=== PATIENT | male | born 1940 | race Caucasian/White ===

== ENCOUNTER 2017-02-14 08:57 | Day surgery (SDC) | payer MEDICARE, BC ==
[~2017-02-14 08:57] MED LIST: Metoclopramide 10 MG/2 ML SDV IV PRN; Sodium Chloride 0.9% 1,000 ML IV SCH; Sodium Chloride 0.9% 10 ML Syringe FLUSH PRN
[2017-02-14] MEDS ORDERED: Propofol 200 MG/20 ML SDV ONE (10:30)
--- NOTE | 2017-02-14 17:27 | OR ---
DATE OF OPERATION: 02/14/2017 PREOPERATIVE DIAGNOSIS: Unexplained chronic iron deficiency anemia. POSTOPERATIVE DIAGNOSES: 1. Oiid-xv-wkaogeja gastritis. 2. 3-cm hiatal hernia. 3. Melanosis coli. 4. Moderate to severe sigmoid diverticulosis. 5. Grade 1 internal hemorrhoids. OPERATION: 1. Esophagogastroduodenoscopy plus biopsy. 2. Colonoscopy. COMPLICATIONS: None. DRAINS: None. SPECIMENS: GE junction biopsy. ESTIMATED BLOOD LOSS: Minimal. ANESTHESIA: General propofol anesthesia. INDICATION: Mr. Norris is a 76-year-old gentleman with background history of a hematological neoplasia and has been noted to have a chronic iron deficiency anemia. He was subsequently referred for upper and lower endoscopy for evaluation. The above-mentioned procedure was explained and the risks, benefits, complications were explained. The patient understood and agreed and he was brought to the operating room. DESCRIPTION OF PROCEDURE: The patient was brought to the operating room, placed in the left lateral decubitus position on the operating room table. Satisfactory general propofol anesthesia was administered. A mouth guard was placed and the patient was placed in a 45- degree angle on table. We began by performing the upper endoscopy first. The endoscope was placed in the oral cavity and then advanced to the level of the second portion of the duodenum under direct observation. Careful evaluation of the duodenum revealed a medium- sized notable ampulla, but no abnormalities identified at that site. Remainder of the duodenum was within normal limits. Evaluation of the stomach revealed some areas of mild to moderate gastritis with some granular appearance in the antrum and pylorus, however, no ulcers were identified. The remainder of the body of the stomach showed some cobblestoning suggestive of old gastritis or suggestive of mild gastritis as well. Retroflexion was performed within the stomach, which revealed a moderate-sized hiatal hernia, which was measured approximately 3 cm. This appeared to be a sliding-type, however, would recommend upper GI for further followup. There was some elements of gastritis surrounding the hiatal hernia site and this was also quite mild. No evidence of active bleeding within the stomach. Evaluation of the GE junction reveals a single tongue of tissue from the GE junction, which was approximately at about 39 cm and this tongue was then biopsied multiple times and sent for histology. The remainder of the esophagus was within normal limits. It did appear slightly dilated, however, no other abnormalities were detected. The endoscope was subsequently withdrawn. The patient tolerated the procedure well. We kept the patient in the left lateral decubitus position and rotated the table and I flattened it out. We performed a lower endoscopy. In prior to doing so, there was a 1.5-2 cm perianal skin tag identified. This was quite soft with no evidence of skin changes. I placed the endoscope by finger introduction into the rectum and there were some external skin tags around the anal verge. These were quite small and likely reminiscent of all the external hemorrhoids. We advanced the endoscope by direct vision to the level of the cecum. This was identified by the appendiceal orifice, the cecal strap, and ileocecal valve. Careful evaluation of the mucosa was performed on withdrawal, this revealed melanosis coli throughout the entire colon and this was approximately moderate in nature. There was severe sigmoid diverticulosis, however, no evidence of bleeding identified. The prep was fair and after lavage the views were good. The patient did have grade 1 internal hemorrhoids. The remainder of the colon was within normal limits. There were no polyps, no neoplastic growths, and no telangiectasias that could be identifying. Retroflexion was performed in the rectum. The colon was then decompressed and the endoscope was withdrawn. The patient tolerated the procedure well. There were no complications. Instrument count was correct. The patient was awoken in the OR, and taken to PACU for recovery. JUN /[id number]
== END 2017-02-14 12:35 | disposition home or self-care (01) ==
LOC: LB.SDS 08:57
PROVIDERS: ATTEND Surgery
DX: K22.70 Barrett's esophagus without dysplasia (principal); K29.50 Unspecified chronic gastritis without bleeding; K57.30 Diverticulosis of large intestine without perforation or abscess without bleeding; K64.8 Other hemorrhoids; K44.9 Diaphragmatic hernia without obstruction or gangrene; I10 Essential (primary) hypertension; Z88.8 Allergy status to other drugs, medicaments and biological substances; Z79.82 Long term (current) use of aspirin; Z79.899 Other long term (current) drug therapy
CPT/HCPCS: 43239; 45378; 88305; J2704; J7040

== ENCOUNTER 2017-02-19 14:37 | Emergency (ER) | payer MEDICARE, BC ==
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
--- NOTE | 2017-02-20 12:01 | CT ---
DATE OF SERVICE: 02/19/17 CLINICAL DATA: Head injury UNENHANCED BRAIN CT Multislice acquisition through the brain without IV contrast was performed. No priors. There is diffuse cerebral atrophy. There is a lucency in the right basal ganglia consistent with an old lacunar infarct. No masses or mass effect. No intracranial hemorrhage. No evidence of acute or subacute infarct. There is soft tissue swelling of the scalp on the right. There is also a subcutaneous hematoma. No underlying fracture. IMPRESSION: No acute intracranial abnormalities. [id number] [facility]
== END 2017-02-19 16:00 | disposition home or self-care (01) ==
LOC: LB.ED 14:37
DX: S00.03XA Contusion of scalp, initial encounter (principal); W22.8XXA Striking against or struck by other objects, initial encounter
CPT/HCPCS: 70450; 99283; 99283-25

== ENCOUNTER 2018-05-11 23:10 | Emergency (ER) | payer MEDICARE, BC ==
--- NOTE | 2018-05-11 23:36 | EDM.PDOC ---
ED HPI GENERAL MEDICAL PROBLEM - General Chief Complaint: Cardiovascular Problem Stated Complaint: HEART BURN Time Seen by Provider: 05/11/18 23:10 Source of Information: Reports: Patient History Limitations: Reports: No Limitations - History of Present Illness INITIAL COMMENTS - FREE TEXT/NARRATIVE: According to patient he has been having heart schuler since yesterday 4 pm. Claims that he feels gassy and feels burning sensation in the midchest. No chest pain, shortness or breath, no worsening of heart burn when he exerts. No backpack. No nausea or vomiting. He has had constant burning in the chest. Spouse gave him pepto-bismol today, heart burn did not resolve. So spouse gave patient her nitro tablet time 2 nd there was some improvement in his heart burn. No sweating, weakness or chest discomfort. No back pain. Onset Date: 05/10/18 Onset Time: 16:00 Location: Reports: Chest Quality: Reports: Burning Severity: Moderate Improves with: Reports: None Worsens with: Reports: None Associated Symptoms: Denies: Confusion, Chest Pain, Cough, Diaphoresis, Fever/ Chills, Headaches, Nausea/Vomiting, Rash, Seizure, Shortness of Breath, Syncope , Weakness - Related Data Allergies Allergy/AdvReac Type Severity Reaction Status Date / Time No Known Allergies Allergy Verified 05/11/18 23:30 Home Meds: Home Meds ALPRAZolam [Alprazolam] 0.25 mg PO TID 02/14/17 [History] Allopurinol [Zyloprim] 300 mg PO DAILY 02/14/17 [History] Aspirin [Adult Low Dose Aspirin EC] 81 mg PO DAILY 02/14/17 [History] Finasteride 5 mg PO DAILY 02/14/17 [History] Ibrutinib [Imbruvica] 140 mg PO DAILY 02/14/17 [History] Losartan/Hydrochlorothiazide [Losartan-HCTZ 100-25 MG] 1 each PO DAILY 02/14/17 [History] Meclizine HCl 25 mg PO DAILY PRN 02/14/17 [History] Metoprolol Succinate [Toprol XL] 50 mg PO DAILY 02/14/17 [History] Omeprazole 20 mg PO DAILY 02/14/17 [History] Ondansetron HCl [Ondansetron] 4 mg PO Q4HR PRN 02/14/17 [History] Sennosides/Docusate Sodium [Senna-Docusate Sodium] 1 each PO DAILY PRN 02/14/17 [History] Simvastatin [Zocor] 40 mg PO BEDTIME 02/14/17 [History] Tamsulosin HCl 0.4 mg PO DAILY 02/14/17 [History] amLODIPine [Norvasc] 10 mg PO DAILY 02/14/17 [History] buPROPion [Wellbutrin] 100 mg PO TID 02/14/17 [History] cloNIDine HCl [Clonidine HCl ER] 0.1 mg PO BID 02/14/17 [History] Past Medical History HEENT History: Reports: Hard of Hearing Cardiovascular History: Reports: [place] Genitourinary History: Reports: Prostate Disorder Neurological History: Reports: None Psychiatric History: Reports: Depression Hematologic History: Reports: Anemia Other Hematologic History: That is why colonoscopy is being done Oncologic (Cancer) History: Reports: Leukemia - Infectious Disease History Infectious Disease History: Reports: Measles, Mumps, Rubella - Past Surgical History Cardiovascular Surgical History: Reports: Coronary Artery Stent Social & Family History - Family History Family Medical History: Noncontributory - Caffeine Use Caffeine Use: Reports: Coffee ED ROS GENERAL - Review of Systems Review Of Systems: See Below Constitutional: Denies: Fever, Chills, Malaise, Weakness HEENT: Denies: Rhinitis, Throat Pain Respiratory: Denies: Shortness of Breath, Wheezing, Pleuritic Chest Pain, Cough , Sputum Cardiovascular: Denies: Chest Pain, Edema, Lightheadedness, Syncope GI/Abdominal: Denies: Abdominal Pain, Constipation, Diarrhea, Distension, Nausea , Vomiting : Denies: Flank Pain, Frequency Musculoskeletal: Denies: Joint Pain, Joint Swelling Skin: Denies: Pruritis, Rash, Erythema Neurological: Denies: Confusion, Dizziness, Headache, Numbness, Tingling Psychiatric: Reports: Anxiety. Denies: Agitation, Confusion ED EXAM, GENERAL - Physical Exam Exam: See Below Exam Limited By: No Limitations General Appearance: Alert, WD/WN, Anxious Eye Exam: Bilateral Eye: EOMI, PERRL Ears: Normal External Exam, Normal Canal, Hearing Grossly Normal, Normal TMs Ear Exam: Bilateral Ear: Auricle Normal, Canal Normal, TM normal Nose: Normal Inspection, Normal Mucosa, No Blood Throat/Mouth: Normal Inspection, Normal Lips, Normal Teeth, Normal Gums, Normal Oropharynx, Normal Voice, No Airway Compromise Head: Atraumatic, Normocephalic Neck: Normal Inspection, Supple, Non-Tender, Full Range of Motion Respiratory/Chest: No Respiratory Distress, Lungs Clear, Normal Breath Sounds, No Accessory Muscle Use, Chest Non-Tender Cardiovascular: Normal Peripheral Pulses, Regular Rate, Rhythm, No Edema, No Gallop, No JVD, No Murmur, No Rub Peripheral Pulses: 2+: Brachial (L), Brachial (R), Popliteal (L), Popliteal (R) GI/Abdominal: Normal Bowel Sounds, Soft, Non-Tender, No Organomegaly, No Distention, No Abnormal Bruit, No Mass Extremities: Normal Inspection, Normal Range of Motion, Non-Tender, Normal Capillary Refill, No Pedal Edema Neurological: Alert, Oriented, CN II-XII Intact Psychiatric: Anxious Skin Exam: Warm, Intact EKG INTERPRETATION EKG Date: 05/11/18 Rhythm: NSR Rate (Beats/Min): 68 [place]: Normal P-Wave: Present QRS: Normal ST-T: Normal QT: Normal Course - Vital Signs Text/Narrative:: Pt's EKG is in normal sinus rhythm. His CBC is normal. CMP is table. troponin is negative. Pt has had chronic GERD, he has had heart burn going on since yesterday 4 pm. If this was related to cardiac injury, his troponin should be positive as his heart burn has been going on for 36 hrs now. Patient and spouse reassured that he might have aggravation of his GERD , possibly from food. I have advised patient to increase his prilosec from 20mg to 40mg daily. Advised to take prilosec on empty stomach in the morning. If his heart burn does not improve, he should have upper GI scope done to rule out peptic ulcer. Last Recorded V/S: Last Vital Signs Temp 97.8 F 05/11/18 23:30 Pulse 67 05/11/18 23:44 Resp 20 05/11/18 23:30 BP 163/75 H 05/11/18 23:44 Pulse Ox 97 05/11/18 23:44 - Orders/Labs/Meds Orders: Active Orders 24 hr Category Date Time Status EKG Documentation Completion [RC] ASDIRECTED Care 05/11/18 23:07 Active Labs: Laboratory Tests 05/11/18 05/11/18 Range/Units 23:15 23:15 WBC 10.4 (4.0-11.0) K/uL RBC 4.85 (4.50-6.50) M/uL Hgb 13.8 (13.0-18.0) g/dL Hct 40.3 (40.0-54.0) % MCV 83 (76-96) fL MCH 28.5 (27.0-32.0) pg MCHC 34.2 (31.0-35.0) g/dL RDW 14.1 (11.0-16.0) % Plt Count 140 L (150-400) K/uL MPV 11.7 H (6.0-10.0) fL Neut % (Auto) 46.9 (45.0-70.0) % Lymph % (Auto) 43.7 H (20.0-40.0) % [place] % (Auto) 7.8 (3.0-10.0) % Eos % (Auto) 1.4 (1.0-5.0) % Baso % (Auto) 0.2 (0.0-0.5) % Neut # (Auto) 4.86 (2.00-7.50) K/uL Lymph # (Auto) 4.53 H (1.50-4.00) K/uL [place] # (Auto) 0.81 H (0.20-0.80) K/uL Eos # (Auto) 0.14 (0.04-0.40) K/uL Baso # (Auto) 0.02 (0.02-0.10) K/uL Sodium 142 (136-145) mmol/L Potassium 3.4 L (3.5-5.1) mmol/L Chloride 103 (98-107) mmol/L Carbon Dioxide 28.8 (21.0-32.0) mmol/L Anion Gap 13.6 (5.0-15.0) mmol/L BUN 18 (8-26) mg/dL Creatinine 1.09 (0.70-1.30) mg/dL Est Cr Clr Drug Dosing 51.38 mL/min Estimated GFR (MDRD) > 60 (>60) MLS/MIN BUN/Creatinine Ratio 16.5 (6-25) Glucose 89 (74-100) mg/dL Calcium 8.0 L (8.5-10.1) mg/dL Total Bilirubin 0.4 D (0.0-1.0) mg/dL AST 15 (15-37) U/L ALT 18 (12-78) U/L Alkaline Phosphatase 53 (46-116) U/L Troponin I < 0.017 (0.000-0.060) ng/mL Total Protein 6.4 (6.4-8.2) g/dL Albumin 3.4 (3.4-5.0) g/dL Globulin 3.0 (2.2-4.2) g/dL Albumin/Globulin Ratio 1.1 (0.8-2.0) Departure - Departure Time of Disposition: 00:00 Disposition: Home, Self-Care 01 Condition: Fair Clinical Impression: Chronic GERD Instructions: Indigestion, [id number] Forms: ED Department Discharge Additional Instructions: Take the omeprazole 40mg (2 tabs of the 20mg) and DO NOT eat with your omeprazole. It is very important to take the omeprazole on an empty stomach. If you continue to have the heartburn, return to the clinic and get a further workup. - Problem List & Annotations (1) Chronic GERD SNOMED Code(s): 585929757, 776883461 Code(s): K21.9 - GASTRO-ESOPHAGEAL REFLUX DISEASE WITHOUT ESOPHAGITIS Status: Acute - Problem List Review Problem List Initiated/Reviewed/Updated: Yes - My Orders Last 24 Hours: My Active Orders 05/11/18 23:07 EKG Documentation Completion [RC] ASDIRECTED - Assessment/Plan Last 24 Hours: My Active Orders 05/11/18 23:07 EKG Documentation Completion [RC] ASDIRECTED Assessment:: Chronic GERD with mild flare up Plan: Pt's EKG is in normal sinus rhythm. His CBC is normal. CMP is table. troponin is negative. Pt has had chronic GERD, he has had heart burn going on since yesterday 4 pm. If this was related to cardiac injury, his troponin should be positive as his heart burn has been going on for 36 hrs now. Patient and spouse reassured that he might have aggravation of his GERD , possibly from food. I have advised patient to increase his prilosec from 20mg to 40mg daily. Advised to take prilosec on empty stomach in the morning. If his heart burn does not improve, he should have upper GI scope done to rule out peptic ulcer.
== END 2018-05-12 00:04 | disposition home or self-care (01) ==
LOC: LB.ED 23:10
DX: K21.9 Gastro-esophageal reflux disease without esophagitis (principal); I25.2 Old myocardial infarction; F32.9 Major depressive disorder, single episode, unspecified; Z79.82 Long term (current) use of aspirin; Z79.899 Other long term (current) drug therapy
CPT/HCPCS: 36415; 80053; 84484; 85025; 93005; 99283; 99284-25

== ENCOUNTER 2018-09-25 15:34 | Observation (INO) | payer MEDICARE, BC ==
[2018-09-25] MEDS ORDERED: ONDANSETRON HCL 4 MG PO PRN (17:07)
[2018-09-25] MEDS ORDERED: Loperamide 2 MG Cap PO PRN (17:10)
--- NOTE | 2018-09-25 17:15 | PCM.HP ---
H&P History of Present Illness - General Date of Service: 09/25/18 Admit Problem/Dx: Admission Diagnosis/Problem Admission Diagnosis/Problem Hyponatremia Source of Information: Patient, Family, Old Records History Limitations: Reports: Altered Mental Status - History of Present Illness Initial Comments - Free Text/Narative: This is a 78yo M with frequent diarrhea for the past week. He has not improved and continues to have loose stools. Family note confusion and incoherence the past day. It has worsened throughout the day. He denies any chest pain, no trouble breathing, but he has some dizziness, some confusion, some gait imbalance which are all new symptoms. He recently was on antibiotics for a toe infection. His infection has resolved but the diarrhea started prior to finishing his course of antibiotics. He has since stopped his antibiotics but the diarrhea continues. He has not been eating well the past few days and now is not drinking as much. Onset of Symptoms: Reports: Gradual Duration of Symptoms: Reports: Day(s):, Getting Worse Location: Reports: Generalized Severity: Moderate Associated Symptoms: Reports: Confusion, Loss of Appetite, Weakness - Related Data Allergies/Adverse Reactions: Allergies Allergy/AdvReac Type Severity Reaction Status Date / Time No Known Allergies Allergy Verified 05/11/18 23:30 Home Medications: Home Meds ALPRAZolam [Alprazolam] 0.25 mg PO TID 02/14/17 [History] Allopurinol [Zyloprim] 300 mg PO DAILY 02/14/17 [History] Aspirin [Adult Low Dose Aspirin EC] 81 mg PO DAILY 02/14/17 [History] Finasteride 5 mg PO DAILY 02/14/17 [History] Ibrutinib [Imbruvica] 140 mg PO DAILY 02/14/17 [History] Losartan/Hydrochlorothiazide [Losartan-HCTZ 100-25 MG] 1 each PO DAILY 02/14/17 [History] Meclizine HCl 25 mg PO DAILY PRN 02/14/17 [History] Metoprolol Succinate [Toprol XL] 50 mg PO DAILY 02/14/17 [History] Omeprazole 20 mg PO DAILY 02/14/17 [History] Ondansetron HCl [Ondansetron] 4 mg PO Q4HR PRN 02/14/17 [History] Sennosides/Docusate Sodium [Senna-Docusate Sodium] 1 each PO DAILY PRN 02/14/17 [History] Simvastatin [Zocor] 40 mg PO BEDTIME 02/14/17 [History] Tamsulosin HCl 0.4 mg PO DAILY 02/14/17 [History] amLODIPine [Norvasc] 10 mg PO DAILY 02/14/17 [History] buPROPion [Wellbutrin] 100 mg PO TID 02/14/17 [History] cloNIDine HCl [Clonidine HCl ER] 0.1 mg PO BID 02/14/17 [History] Past Medical History HEENT History: Reports: Hard of Hearing Cardiovascular History: Reports: [place] Genitourinary History: Reports: Prostate Disorder Neurological History: Reports: None Psychiatric History: Reports: Depression Hematologic History: Reports: Anemia Other Hematologic History: That is why colonoscopy is being done Oncologic (Cancer) History: Reports: Leukemia - Infectious Disease History Infectious Disease History: Reports: Measles, Mumps, Rubella - Past Surgical History Cardiovascular Surgical History: Reports: Coronary Artery Stent Social & Family History - Family History Family Medical History: Noncontributory - Caffeine Use Caffeine Use: Reports: Coffee H&P Review of Systems - Review of Systems: Review Of Systems: ROS reveals no pertinent complaints other than HPI. Exam - Exam Exam: See Below - Exam General: Alert, Cooperative. No: Oriented HEENT: PERRLA, Conjunctiva Clear, EACs Clear, EOMI, Other (decreased hearing is baseline) Neck: Supple, Trachea Midline Lungs: Clear to Auscultation, Normal Respiratory Effort Cardiovascular: Regular Rate, Regular Rhythm GI/Abdominal Exam: Soft, Abnormal Bowel Sounds (hyperactive) Back Exam: Normal Inspection Extremities: Normal Inspection Peripheral Pulses: 2+: Dorsalis Pedis (L), Dorsalis Pedis (R) Skin: Warm, Dry, Intact - Patient Data Lab Results Last 24 hrs: Laboratory Results - last 24 hr 09/25/18 09/25/18 Range/Units 15:45 15:45 WBC 6.9 D (4.0-11.0) K/uL RBC 4.15 L (4.50-6.50) M/uL Hgb 11.8 L (13.0-18.0) g/dL Hct 33.7 L (40.0-54.0) % MCV 81 (76-96) fL MCH 28.4 (27.0-32.0) pg MCHC 35.0 (31.0-35.0) g/dL RDW 13.2 (11.0-16.0) % Plt Count 138 L (150-400) K/uL MPV 12.2 H (6.0-10.0) fL Neut % (Auto) 47.5 (45.0-70.0) % Lymph % (Auto) 33.3 (20.0-40.0) % [place] % (Auto) 17.0 H (3.0-10.0) % Eos % (Auto) 1.9 (1.0-5.0) % Baso % (Auto) 0.3 (0.0-0.5) % Neut # (Auto) 3.28 (2.00-7.50) K/uL Lymph # (Auto) 2.30 (1.50-4.00) K/uL [place] # (Auto) 1.17 H (0.20-0.80) K/uL Eos # (Auto) 0.13 (0.04-0.40) K/uL Baso # (Auto) 0.02 (0.02-0.10) K/uL Sodium 132 L (136-145) mmol/L Potassium 3.2 L (3.5-5.1) mmol/L Chloride 96 L (98-107) mmol/L Carbon Dioxide 30.2 (21.0-32.0) mmol/L Anion Gap 9.0 (5.0-15.0) mmol/L BUN 26 D (8-26) mg/dL Creatinine 1.29 (0.70-1.30) mg/dL Est Cr Clr Drug Dosing TNP Estimated GFR (MDRD) 54 L (>60) MLS/MIN BUN/Creatinine Ratio 20.2 (6-25) Glucose 104 H (74-100) mg/dL Calcium 7.8 L (8.5-10.1) mg/dL Result Diagrams: 09/25/18 15:45 09/25/18 15:45 - Problem List (1) Hyponatremia SNOMED Code(s): 28881983 ICD Code: E87.1 - HYPO-OSMOLALITY AND HYPONATREMIA Status: Acute Priority : High Current Visit: Yes (2) Delirium SNOMED Code(s): 1918209 ICD Code: R41.0 - DISORIENTATION, UNSPECIFIED Status: Acute Priority: High Current Visit: Yes (3) Hypokalemia SNOMED Code(s): 64376846 ICD Code: E87.6 - HYPOKALEMIA Status: Acute Priority: High Current Visit: Yes (4) Diarrhea SNOMED Code(s): 51336460 ICD Code: R19.7 - DIARRHEA, UNSPECIFIED Status: Acute Priority: High Current Visit: Yes Qualifiers: Diarrhea type: unspecified type Qualified Code(s): R19.7 - Diarrhea, unspecified Problem List Initiated/Reviewed/Updated: Yes Orders Last 24hrs: Active Orders 24 hr Category Date Time Status Patient Status [ADT] Routine ADT 09/25/18 17:05 Ordered Oxygen Therapy [RC] PRN Care 09/25/18 17:06 Ordered Vital Signs [RC] Q4H Care 09/25/18 17:05 Ordered ALPRAZolam [Xanax] Med 09/25/18 20:00 Ordered 0.25 mg PO TID Allopurinol [Zyloprim] Med 09/26/18 08:00 Ordered 300 mg PO DAILY Aspirin [Halfprin] Med 09/26/18 08:00 Ordered 81 mg PO DAILY Dextrose 5%-Normal Saline with KCl 20 mEq @ 125 mL/Hr ( Med 09/25/18 17:15 Ordered 1000 mL) Dextrose 5%-0.9% NaCl with KCl [D5 NS with 20 mEq KCl] 1,000 ml IV ASDIRECTED Docusate Sodium/Sennosides [Senna Plus] Med 09/25/18 17:07 Stop Req DOSE tab PO DAILY PRN Finasteride [Proscar] Med 09/26/18 08:00 Ordered 5 mg PO DAILY Ibrutinib [Imbruvica] Med 09/26/18 08:00 Ordered 140 mg PO DAILY Loperamide [Imodium] Med 09/25/18 17:10 Ordered 2 mg PO ASDIRECTED PRN Losartan/Hydrochlorothiazide [Losartan-HCTZ 100-25 MG] Med 09/26/18 08:00 Ordered 1 each PO DAILY Meclizine HCl [Meclizine HCl] Med 09/25/18 17:07 Ordered 25 mg PO DAILY PRN Metoprolol Succinate [Toprol XL] Med 09/26/18 08:00 Ordered 50 mg PO DAILY Omeprazole Med 09/26/18 08:00 Ordered 20 mg PO DAILY Ondansetron HCl [Ondansetron] Med 09/25/18 17:07 Ordered 4 mg PO Q4HR PRN Simvastatin [Zocor] Med 09/25/18 20:00 Ordered 40 mg PO BEDTIME Tamsulosin [Flomax] Med 09/26/18 08:00 Ordered 0.4 mg PO DAILY amLODIPine [Norvasc] Med 09/26/18 08:00 Ordered 10 mg PO DAILY buPROPion [Wellbutrin] Med 09/25/18 20:00 Ordered 100 mg PO TID cloNIDine HCl [Clonidine HCl ER] Med 09/25/18 20:00 Ordered 0.1 mg PO BID Medication Orders Allopurinol (Zyloprim) 300 mg PO DAILY [facility] Alprazolam (Xanax) 0.25 mg PO TID [facility] Amlodipine Besylate (Norvasc) 10 mg PO DAILY [facility] Aspirin (Halfprin) 81 mg PO DAILY [facility] Finasteride (Proscar) 5 mg PO DAILY [facility] Potassium Chloride/Dextrose/Sod Cl (D5 Ns With 20 Meq Kcl) 1,000 mls @ 125 mls/ hr IV ASDIRECTED [facility] Stop: 09/27/18 01:14 Loperamide HCl (Imodium) 2 mg PO ASDIRECTED PRN PRN Reason: Diarrhea Metoprolol Succinate (Toprol Xl) 50 mg PO DAILY [facility] Non-Formulary Medication (Bupropion [Wellbutrin]) 100 mg PO TID [facility] Non-Formulary Medication (Clonidine Hcl [Clonidine Hcl Er]) 0.1 mg PO BID [facility] Non-Formulary Medication (Ibrutinib [Imbruvica]) 140 mg PO DAILY [facility] Non-Formulary Medication (Losartan/Hydrochlorothiazide [Losartan-Hctz 100-25 Mg] ) 1 each PO DAILY [facility] Non-Formulary Medication (Meclizine Hcl [Meclizine Hcl]) 25 mg PO DAILY PRN PRN Reason: Nausea Non-Formulary Medication (Ondansetron Hcl [Ondansetron]) 4 mg PO Q4HR PRN PRN Reason: Nausea Omeprazole (Omeprazole) 20 mg PO DAILY [facility] Simvastatin (Zocor) 40 mg PO BEDTIME [facility] Tamsulosin HCl (Flomax) 0.4 mg PO DAILY [facility] Assessment/Plan Comment:: Patient placed in observation for management of electrolytes and f/u labs in AM. Discussed delirium and continued monitoring until resolution. We will start loperamide and probiotics for diarrhea. F/u in am.
[2018-09-25] MEDS ORDERED: Lactobacillus Acidophilus/Lactobacillus Sporogenes (Probiotic) Tab PO SCH (17:24)
[2018-09-25] MEDS ORDERED: Dextrose 5%-0.9% NaCl with KCl 1,000 ML ONE (17:33)
[2018-09-25] MEDS: Dextrose 5%-0.9% NaCl with KCl 1,000 ML IV SCH (17:36)
[2018-09-25] MEDS ORDERED: CLONIDINE HCL 0.1 MG PO SCH (20:00)
[2018-09-25] MEDS ORDERED: Metoprolol Succinate 50 MG Tab.ER PO SCH (20:00)
[2018-09-25] MEDS ORDERED: Simvastatin 40 MG Tab PO SCH (20:00)
[2018-09-25] MEDS ORDERED: Tamsulosin 0.4 MG Cap.ER PO SCH (20:00)
[2018-09-25] MEDS ORDERED: Non-Formulary Medication 1 Each (Bupropion [Wellbutrin] 100 MG) PO SCH (20:00)
[2018-09-25] MEDS ORDERED: ALPRAZolam 0.25 MG Tab PO SCH (20:00)
[2018-09-26] MEDS: Dextrose 5%-0.9% NaCl with KCl 1,000 ML IV SCH (04:09)
[2018-09-26] MEDS ORDERED: Omeprazole 20 MG Cap.CR PO SCH (07:00)
[2018-09-26] MEDS ORDERED: amLODIPine 10 MG Tab PO SCH (08:00)
[2018-09-26] MEDS ORDERED: Aspirin 81 MG Tab.EC PO SCH (08:00)
[2018-09-26] MEDS ORDERED: Finasteride 5 MG Tab PO SCH (08:00)
[2018-09-26] MEDS ORDERED: Allopurinol 300 MG Tab PO SCH (08:00)
[2018-09-26] MEDS ORDERED: Hydrochlorothiazide 25 MG Tab PO SCH (08:00)
[2018-09-26] MEDS ORDERED: IBRUTINIB 140 MG PO SCH (08:00)
[2018-09-26] MEDS ORDERED: Losartan 50 MG Tab PO SCH (08:00)
--- NOTE | 2018-09-26 09:59 | PCM.DCSUM1 ---
Discharge Summary - Discharge Data Discharge Date: 09/26/18 Discharge Disposition: Home, Self-Care 01 Condition: Good - Discharge Diagnosis/Problem(s) (1) Hyponatremia SNOMED Code(s): 07230116 ICD Code: E87.1 - HYPO-OSMOLALITY AND HYPONATREMIA Status: Resolved Priority: High Current Visit: Yes (2) Delirium SNOMED Code(s): 6618591 ICD Code: R41.0 - DISORIENTATION, UNSPECIFIED Status: Resolved Priority: High Current Visit: Yes (3) Hypokalemia SNOMED Code(s): 30170971 ICD Code: E87.6 - HYPOKALEMIA Status: Acute Priority: Medium Current Visit: Yes (4) Diarrhea SNOMED Code(s): 50170845 ICD Code: R19.7 - DIARRHEA, UNSPECIFIED Status: Acute Priority: Medium Current Visit: Yes Qualifiers: Diarrhea type: unspecified type Qualified Code(s): R19.7 - Diarrhea, unspecified - Patient Instructions Activity: As Tolerated Showering/Bathing: May Shower - Discharge Plan Prescriptions/Med Rec: Acidophilus/Lactobac Spor [Acidolphilus X-Strength] 1 tab PO BID #60 tablet Loperamide [Imodium] 2 mg PO ASDIRECTED PRN #20 cap PRN Reason: Diarrhea Potassium Chloride [Klor-Con 10] 10 meq PO BID #20 tablet.er Home Medications: Home Meds ALPRAZolam [Alprazolam] 0.5 mg PO TID 02/14/17 [History] Aspirin [Adult Low Dose Aspirin EC] 81 mg PO DAILY 02/14/17 [History] Finasteride 5 mg PO DAILY 02/14/17 [History] Ibrutinib [Imbruvica] 420 mg PO DAILY 02/14/17 [History] Losartan/Hydrochlorothiazide [Losartan-HCTZ 100-25 MG] 1 each PO DAILY 02/14/17 [History] Meclizine HCl 25 mg PO DAILY PRN 02/14/17 [History] Metoprolol Succinate [Toprol XL] 50 mg PO BEDTIME 02/14/17 [History] Omeprazole 40 mg PO DAILY 02/14/17 [History] Simvastatin [Zocor] 20 mg PO BEDTIME 02/14/17 [History] Tamsulosin HCl 0.4 mg PO BEDTIME 02/14/17 [History] amLODIPine [Norvasc] 10 mg PO DAILY 02/14/17 [History] buPROPion [Wellbutrin] 300 mg PO TID 02/14/17 [History] cloNIDine HCl [Clonidine HCl ER] 0.1 mg TOP WEEKLY 02/14/17 [History] Furosemide [Lasix] 20 mg PO DAILY 09/25/18 [History] Acidophilus/Lactobac Spor [Acidolphilus X-Strength] 1 tab PO BID #60 tablet 05/16 [Rx] Loperamide [Imodium] 2 mg PO ASDIRECTED PRN #20 cap 09/26/18 [Rx] Potassium Chloride [Klor-Con 10] 10 meq PO BID #20 tablet.er 09/26/18 [Rx] Patient Handouts: Diarrhea, Adult, Hyponatremia - Discharge Summary/Plan Comment DC Time >30 min.: No Discharge Summary/Plan Comment: Patient to be discharged. His symptoms have resolved. We will continue probiotics for 1 month. Continue loperamide as needed until diarrhea resolves. Hold home senna. Start KCl for 10 days and f/u with PCP as needed and for BMP. - General Info Date of Service: 09/26/18 Functional Status: Reports: Tolerating Diet, Ambulating - Review of Systems General: Reports: No Symptoms HEENT: Reports: No Symptoms Pulmonary: Reports: No Symptoms Cardiovascular: Reports: No Symptoms Gastrointestinal: Reports: No Symptoms Genitourinary: Reports: No Symptoms Musculoskeletal: Reports: No Symptoms Skin: Reports: No Symptoms Neurological: Reports: No Symptoms Psychiatric: Reports: No Symptoms - Patient Data Vitals - Most Recent: Last Vital Signs Temp 36.6 C 09/26/18 09:00 Pulse 75 09/26/18 09:00 Resp 18 09/26/18 09:00 BP 153/60 H 09/26/18 09:00 Pulse Ox 96 09/26/18 09:00 Weight - Most Recent: 89.539 kg I&O - Last 24 hours: Intake & Output 09/25/18 09/26/18 09/26/18 22:59 06:59 14:59 Intake Total 75 200 855 Output Total 1300 400 Balance 75 -1100 455 Lab Results - Last 24 hrs: Laboratory Results - last 24 hr 09/25/18 09/25/18 09/26/18 Range/Units 15:45 15:45 07:00 WBC 6.9 D 5.0 D (4.0-11.0) K/uL RBC 4.15 L 4.02 L (4.50-6.50) M/uL Hgb 11.8 L 11.3 L (13.0-18.0) g/dL Hct 33.7 L 32.8 L (40.0-54.0) % MCV 81 82 (76-96) fL MCH 28.4 28.1 (27.0-32.0) pg MCHC 35.0 34.5 (31.0-35.0) g/dL RDW 13.2 13.4 (11.0-16.0) % Plt Count 138 L 119 L (150-400) K/uL MPV 12.2 H 12.1 H (6.0-10.0) fL Neut % (Auto) 47.5 46.3 (45.0-70.0) % Lymph % (Auto) 33.3 31.9 (20.0-40.0) % [place] % (Auto) 17.0 H 19.8 H (3.0-10.0) % Eos % (Auto) 1.9 1.8 (1.0-5.0) % Baso % (Auto) 0.3 0.2 (0.0-0.5) % Neut # (Auto) 3.28 2.30 (2.00-7.50) K/uL Lymph # (Auto) 2.30 1.58 (1.50-4.00) K/uL [place] # (Auto) 1.17 H 0.98 H (0.20-0.80) K/uL Eos # (Auto) 0.13 0.09 (0.04-0.40) K/uL Baso # (Auto) 0.02 0.01 L (0.02-0.10) K/uL Sodium 132 L (136-145) mmol/L Potassium 3.2 L (3.5-5.1) mmol/L Chloride 96 L (98-107) mmol/L Carbon Dioxide 30.2 (21.0-32.0) mmol/L Anion Gap 9.0 (5.0-15.0) mmol/L BUN 26 D (8-26) mg/dL Creatinine 1.29 (0.70-1.30) mg/dL Est Cr Clr Drug Dosing TNP Estimated GFR (MDRD) 54 L (>60) MLS/MIN BUN/Creatinine Ratio 20.2 (6-25) Glucose 104 H (74-100) mg/dL Calcium 7.8 L (8.5-10.1) mg/dL Total Bilirubin (0.0-1.0) mg/dL AST (15-37) U/L ALT (12-78) U/L Alkaline Phosphatase (46-116) U/L Total Protein (6.4-8.2) g/dL Albumin (3.4-5.0) g/dL Globulin (2.2-4.2) g/dL Albumin/Globulin Ratio (0.8-2.0) 09/26/18 Range/Units 07:00 WBC (4.0-11.0) K/uL RBC (4.50-6.50) M/uL Hgb (13.0-18.0) g/dL Hct (40.0-54.0) % MCV (76-96) fL MCH (27.0-32.0) pg MCHC (31.0-35.0) g/dL RDW (11.0-16.0) % Plt Count (150-400) K/uL MPV (6.0-10.0) fL Neut % (Auto) (45.0-70.0) % Lymph % (Auto) (20.0-40.0) % [place] % (Auto) (3.0-10.0) % Eos % (Auto) (1.0-5.0) % Baso % (Auto) (0.0-0.5) % Neut # (Auto) (2.00-7.50) K/uL Lymph # (Auto) (1.50-4.00) K/uL [place] # (Auto) (0.20-0.80) K/uL Eos # (Auto) (0.04-0.40) K/uL Baso # (Auto) (0.02-0.10) K/uL Sodium 139 (136-145) mmol/L Potassium 3.1 L (3.5-5.1) mmol/L Chloride 103 (98-107) mmol/L Carbon Dioxide 27.7 (21.0-32.0) mmol/L Anion Gap 11.4 (5.0-15.0) mmol/L BUN 17 D (8-26) mg/dL Creatinine 1.12 (0.70-1.30) mg/dL Est Cr Clr Drug Dosing 49.18 Estimated GFR (MDRD) > 60 (>60) MLS/MIN BUN/Creatinine Ratio 15.2 (6-25) Glucose 116 H (74-100) mg/dL Calcium 7.7 L (8.5-10.1) mg/dL Total Bilirubin 0.4 D (0.0-1.0) mg/dL AST 11 L (15-37) U/L ALT 14 (12-78) U/L Alkaline Phosphatase 56 (46-116) U/L Total Protein 5.1 L (6.4-8.2) g/dL Albumin 2.2 L (3.4-5.0) g/dL Globulin 2.9 (2.2-4.2) g/dL Albumin/Globulin Ratio 0.8 (0.8-2.0) Med Orders - Current: Current Medications Allopurinol (Zyloprim) 300 mg PO DAILY [facility] Alprazolam (Xanax) 0.25 mg PO TID [facility] Amlodipine Besylate (Norvasc) 10 mg PO DAILY [facility] Last Admin: 09/26/18 08:26 Dose: Not Given Aspirin (Halfprin) 81 mg PO DAILY [facility] Last Admin: 09/26/18 08:24 Dose: 81 mg Finasteride (Proscar) 5 mg PO DAILY [facility] Last Admin: 09/26/18 08:26 Dose: 5 mg Hydrochlorothiazide (Hydrochlorothiazide) 25 mg PO DAILY [facility] Last Admin: 09/26/18 08:24 Dose: 25 mg Potassium Chloride/Dextrose/Sod Cl (D5 Ns With 20 Meq Kcl) 1,000 mls @ 125 mls/ hr IV ASDIRECTED [facility] Stop: 09/27/18 01:14 Last Admin: 09/26/18 04:09 Dose: 125 mls/hr Lactobacillus Acidophilus (Acidolphilus Extra Strength) 1 tab PO BID [facility] Last Admin: 09/25/18 20:59 Dose: 1 tab Loperamide HCl (Imodium) 2 mg PO ASDIRECTED PRN PRN Reason: Diarrhea Losartan Potassium (Cozaar) 100 mg PO DAILY [facility] Last Admin: 09/26/18 08:24 Dose: 100 mg Meclizine HCl (Antivert) 25 mg PO DAILY PRN PRN Reason: Nausea Last Admin: 09/25/18 21:04 Dose: 25 mg Metoprolol Succinate (Toprol Xl) 50 mg PO BEDTIME [facility] Last Admin: 09/25/18 21:01 Dose: 50 mg Non-Formulary Medication (Bupropion [Wellbutrin]) 100 mg PO TID [facility] Non-Formulary Medication (Clonidine Hcl [Clonidine Hcl Er]) 0.1 mg PO BID [facility] Non-Formulary Medication (Ibrutinib [Imbruvica]) 140 mg PO DAILY [facility] Non-Formulary Medication (Ondansetron Hcl [Ondansetron]) 4 mg PO Q4HR PRN PRN Reason: Nausea Omeprazole (Omeprazole) 20 mg PO ACBREAKFAST [facility] Simvastatin (Zocor) 40 mg PO BEDTIME [facility] Tamsulosin HCl (Flomax) 0.4 mg PO BEDTIME [facility] Last Admin: 09/25/18 21:00 Dose: 0.4 mg Discontinued Medications Potassium Chloride/Dextrose/Sod Cl (D5 Ns With 20 Meq Kcl) Confirm Administered Dose 1,000 mls @ as directed .ROUTE .[facility] Stop: 09/25/18 17:34 Last Admin: 09/25/18 20:59 Dose: 125 mls/hr Senna/Docusate Sodium (Senna Plus) tab PO DAILY PRN PRN Reason: Constipation - Exam General: Reports: Alert, Oriented, Cooperative HEENT: Reports: Pupils Equal, Pupils Reactive, EOMI Neck: Reports: Supple Lungs: Reports: Clear to Auscultation, Normal Respiratory Effort Cardiovascular: Reports: Regular Rate, Regular Rhythm GI/Abdominal Exam: Normal Bowel Sounds Back Exam: Reports: Normal Inspection Extremities: Normal Inspection, Normal Range of Motion Skin: Reports: Warm, Dry, Intact Neurological: Reports: No New Focal Deficit Psy/Mental Status: Reports: Alert, Normal Affect, Normal Mood
== END 2018-09-26 10:15 | disposition home or self-care (01) ==
LOC: LB.CLINIC 15:34 → UNDOADMOB 16:45 → LB.MS 16:45
PROVIDERS: ADMIT Family Medicine; ATTEND Family Medicine
DX: E87.1 Hypo-osmolality and hyponatremia (principal); R19.7 Diarrhea, unspecified; R41.0 Disorientation, unspecified; E87.6 Hypokalemia; I25.2 Old myocardial infarction; F29 Unspecified psychosis not due to a substance or known physiological condition; D64.9 Anemia, unspecified; Z79.82 Long term (current) use of aspirin; Z79.899 Other long term (current) drug therapy; Z95.5 Presence of coronary angioplasty implant and graft; Z85.6 Personal history of leukemia
CPT/HCPCS: 36415; 80048; 80053; 85025; 96360; 96361; A9270; G0378; G0379; J3480

== ENCOUNTER 2021-05-11 10:33 | Emergency (ER) | payer MEDICARE, BC ==
[2021-05-11] MEDS: Ondansetron 4 MG Tab.DIS PO ONE (12:38)
[2021-05-11] MEDS ORDERED: Ondansetron 4 MG Tab.DIS ONE (12:48)
== END 2021-05-12 12:05 | disposition home or self-care (01) ==
LOC: LB.ED 10:33
DX: U07.1 COVID-19 (principal); R63.0 Anorexia; K21.9 Gastro-esophageal reflux disease without esophagitis; I25.2 Old myocardial infarction; Z95.5 Presence of coronary angioplasty implant and graft; Z79.82 Long term (current) use of aspirin; Z79.899 Other long term (current) drug therapy; Z87.891 Personal history of nicotine dependence
CPT/HCPCS: 99283; Q0162

== ENCOUNTER 2021-05-14 15:13 | Inpatient (IN) | payer MEDICARE, BC ==
[2021-05-14] MEDS ORDERED: Ondansetron 4 MG/2 ML SDV IVPUSH ONE ×2 (15:50→16:39)
[2021-05-14] MEDS ORDERED: Sodium Chloride 0.9% 500 ML IV ONE (16:00)
[2021-05-14] MEDS ORDERED: Ondansetron 4 MG/2 ML SDV ONE ×2 (16:02→16:36)
[2021-05-14] MEDS ORDERED: Sodium Chloride 0.9% 10 ML Syringe FLUSH PRN (16:43)
[2021-05-14] MEDS: Albuterol/Ipratropium 3.0-0.5 MG/3 ML Neb Soln NEB SCH (18:28)
[2021-05-14] MEDS: Acetaminophen 325 MG Tab PO PRN (18:29)
[2021-05-14] MEDS: LORazepam 2 MG/ML SDV IV PRN (18:29)
[2021-05-14] MEDS: cefTRIAXone 1 GM in Sodium Chloride 0.9% 50 ML IV SCH (20:53)
[2021-05-14] MEDS: Azithromycin 500 MG in Sodium Chloride 0.9% 250 ML IV SCH (20:55)
[2021-05-15] MEDS: Albuterol/Ipratropium 3.0-0.5 MG/3 ML Neb Soln NEB SCH ×5 (01:25→17:19)
[2021-05-15] MEDS ORDERED: Albuterol/Ipratropium 3.0-0.5 MG/3 ML Neb Soln ONE (08:36)
[2021-05-15] MEDS: Acetaminophen 325 MG Tab PO PRN (09:04)
[2021-05-15] MEDS ORDERED: Potassium Chloride 10% 20 MEQ/15 ML Soln 15 ML UD Cup PO ONE (09:26)
[2021-05-15] MEDS ORDERED: Potassium Chloride 10% 20 MEQ/15 ML Soln 15 ML UD Cup ONE (09:33)
[2021-05-15] MEDS: cefTRIAXone 1 GM in Sodium Chloride 0.9% 50 ML IV SCH (18:00)
[2021-05-15] MEDS: Azithromycin 500 MG in Sodium Chloride 0.9% 250 ML IV SCH (18:30)
[2021-05-15] MEDS: Polyethylene Glycol 3350 Powder 17 GM Packet PO SCH (20:36)
[2021-05-16] MEDS: Albuterol/Ipratropium 3.0-0.5 MG/3 ML Neb Soln NEB SCH ×4 (00:36→19:40)
[2021-05-16] MEDS: Polyethylene Glycol 3350 Powder 17 GM Packet PO SCH (08:24)
[2021-05-16] MEDS ORDERED: cefTRIAXone 1 GM in Sodium Chloride 0.9% 50 ML IV ONE (10:35)
[2021-05-16] MEDS ORDERED: Magnesium Hydroxide 400 MG/5 ML Susp 30 ML Cup PO ONE (10:48)
[2021-05-16] MEDS ORDERED: Loperamide 2 MG Cap PO PRN (11:28)
[2021-05-16] MEDS ORDERED: MECLIZINE HCL 25 MG PO PRN (11:28)
[2021-05-16] MEDS ORDERED: CLONIDINE 0.3 MG TOP SCH (11:30)
[2021-05-16] MEDS ORDERED: Omeprazole 20 MG Cap.CR PO SCH (11:30)
[2021-05-16] MEDS ORDERED: CLONIDINE HCL 0.1 MG TOP SCH (11:30)
[2021-05-16] MEDS: Lactobacillus Acidophilus/Lactobacillus Sporogenes (Probiotic) Tab PO SCH ×2 (11:40→19:41)
[2021-05-16] MEDS: Finasteride 5 MG Tab PO SCH (11:40)
[2021-05-16] MEDS: Aspirin 81 MG Tab.EC PO SCH (11:40)
[2021-05-16] MEDS: amLODIPine 10 MG Tab PO SCH (11:40)
[2021-05-16] MEDS: Ferrous Sulfate 325 MG Tab PO SCH ×2 (11:40→19:41)
[2021-05-16] MEDS: Furosemide 20 MG Tab PO SCH (11:41)
[2021-05-16] MEDS: Docusate Sodium 100 MG Cap PO PRN (11:51)
[2021-05-16] MEDS: Acetaminophen 325 MG Tab PO PRN (12:01)
[2021-05-16] MEDS: Non-Formulary Medication 1 Each (Bupropion [Wellbutrin] 100 MG Tablet) PO SCH ×2 (14:45→19:44)
[2021-05-16] MEDS: Azithromycin 500 MG in Sodium Chloride 0.9% 250 ML IV SCH (19:39)
[2021-05-16] MEDS: Metoprolol Succinate 50 MG Tab.ER PO SCH (19:40)
[2021-05-16] MEDS: Tamsulosin 0.4 MG Cap.ER PO SCH (19:41)
[2021-05-16] MEDS: Simvastatin 40 MG Tab PO SCH (19:41)
[2021-05-17] MEDS: Albuterol/Ipratropium 3.0-0.5 MG/3 ML Neb Soln NEB SCH ×4 (01:47→18:06)
[2021-05-17] MEDS: Omeprazole 20 MG Cap.CR PO SCH (06:10)
[2021-05-17] MEDS ORDERED: Non-Formulary Medication 1 Each (Ibrutinib [Imbruvica] 140 MG Capsule) PO SCH (08:00)
[2021-05-17] MEDS: cefTRIAXone 2 GM in Sodium Chloride 0.9% 100 ML IV SCH (09:40)
[2021-05-17] MEDS: Non-Formulary Medication 1 Each (Bupropion [Wellbutrin] 100 MG Tablet) PO SCH ×3 (09:41→14:21)
[2021-05-17] MEDS: Ferrous Sulfate 325 MG Tab PO SCH ×2 (09:41→19:24)
[2021-05-17] MEDS: amLODIPine 10 MG Tab PO SCH (09:41)
[2021-05-17] MEDS: Lactobacillus Acidophilus/Lactobacillus Sporogenes (Probiotic) Tab PO SCH ×2 (09:41→19:24)
[2021-05-17] MEDS: Furosemide 20 MG Tab PO SCH (09:41)
[2021-05-17] MEDS: Hydrochlorothiazide 25 MG Tab PO SCH (09:41)
[2021-05-17] MEDS: Finasteride 5 MG Tab PO SCH (09:41)
[2021-05-17] MEDS: Aspirin 81 MG Tab.EC PO SCH (09:41)
[2021-05-17] MEDS: Docusate Sodium 100 MG Cap PO SCH (09:41)
[2021-05-17] MEDS: Losartan 50 MG Tab PO SCH (09:42)
[2021-05-17] MEDS: Polyethylene Glycol 3350 Powder 17 GM Packet PO SCH (09:43)
[2021-05-17] MEDS: Docusate Sodium 100 MG Cap PO PRN (09:44)
[2021-05-17] MEDS: ALPRAZolam 0.25 MG Tab PO PRN ×2 (18:06→23:00)
[2021-05-17] MEDS: Azithromycin 500 MG in Sodium Chloride 0.9% 250 ML IV SCH (18:07)
[2021-05-17] MEDS: Simvastatin 40 MG Tab PO SCH (19:24)
[2021-05-17] MEDS: Tamsulosin 0.4 MG Cap.ER PO SCH (19:29)
[2021-05-17] MEDS: IBRUTINIB 420 MG PO SCH (19:30)
[2021-05-17] MEDS: Metoprolol Succinate 50 MG Tab.ER PO SCH (19:51)
[2021-05-17] MEDS ORDERED: LORazepam 2 MG/ML SDV IVPUSH ONE (23:30)
[2021-05-18] MEDS: Albuterol/Ipratropium 3.0-0.5 MG/3 ML Neb Soln NEB SCH ×4 (00:11→17:49)
[2021-05-18] MEDS: LORazepam 2 MG/ML SDV IV PRN (02:30)
[2021-05-18] MEDS: Polyethylene Glycol 3350 Powder 17 GM Packet PO SCH (10:14)
[2021-05-18] MEDS: Finasteride 5 MG Tab PO SCH (10:15)
[2021-05-18] MEDS: Omeprazole 20 MG Cap.CR PO SCH (10:15)
[2021-05-18] MEDS: amLODIPine 10 MG Tab PO SCH (10:15)
[2021-05-18] MEDS: Losartan 50 MG Tab PO SCH (10:16)
[2021-05-18] MEDS: Furosemide 20 MG Tab PO SCH (10:16)
[2021-05-18] MEDS: Hydrochlorothiazide 25 MG Tab PO SCH (10:16)
[2021-05-18] MEDS: buPROPion 300 MG Tab.ER PO SCH (10:16)
[2021-05-18] MEDS: Aspirin 81 MG Tab.EC PO SCH (10:16)
[2021-05-18] MEDS: Docusate Sodium 100 MG Cap PO SCH (10:17)
[2021-05-18] MEDS: Lactobacillus Acidophilus/Lactobacillus Sporogenes (Probiotic) Tab PO SCH ×2 (10:17→19:40)
[2021-05-18] MEDS: Ferrous Sulfate 325 MG Tab PO SCH ×2 (10:18→19:40)
[2021-05-18] MEDS: Dexamethasone 4 MG Tab PO SCH (17:10)
[2021-05-18] MEDS: IBRUTINIB 420 MG PO SCH (19:38)
[2021-05-18] MEDS: Simvastatin 40 MG Tab PO SCH (19:39)
[2021-05-18] MEDS: Tamsulosin 0.4 MG Cap.ER PO SCH (19:40)
[2021-05-18] MEDS: Metoprolol Succinate 50 MG Tab.ER PO SCH (19:40)
[2021-05-19] MEDS: Albuterol/Ipratropium 3.0-0.5 MG/3 ML Neb Soln NEB SCH ×3 (00:49→13:29)
[2021-05-19] MEDS: cefTRIAXone 2 GM in Sodium Chloride 0.9% 100 ML IV SCH (07:48)
[2021-05-19] MEDS: Polyethylene Glycol 3350 Powder 17 GM Packet PO SCH (08:00)
[2021-05-19] MEDS: Omeprazole 20 MG Cap.CR PO SCH (08:01)
[2021-05-19] MEDS: Hydrochlorothiazide 25 MG Tab PO SCH (08:02)
[2021-05-19] MEDS: Lactobacillus Acidophilus/Lactobacillus Sporogenes (Probiotic) Tab PO SCH (08:02)
[2021-05-19] MEDS: Ferrous Sulfate 325 MG Tab PO SCH (08:02)
[2021-05-19] MEDS: Finasteride 5 MG Tab PO SCH (08:03)
[2021-05-19] MEDS: Aspirin 81 MG Tab.EC PO SCH (08:03)
[2021-05-19] MEDS: Furosemide 20 MG Tab PO SCH (08:03)
[2021-05-19] MEDS: Dexamethasone 4 MG Tab PO SCH (08:03)
[2021-05-19] MEDS: Docusate Sodium 100 MG Cap PO SCH (08:03)
[2021-05-19] MEDS: buPROPion 300 MG Tab.ER PO SCH (08:04)
[2021-05-19] MEDS: Losartan 50 MG Tab PO SCH (08:29)
[2021-05-19] MEDS: amLODIPine 10 MG Tab PO SCH (08:30)
[2021-05-19] MEDS: ALPRAZolam 0.25 MG Tab PO PRN (09:15)
== END 2021-05-19 14:55 | disposition home or self-care (01) | DRG 177 ==
LOC: LB.ED 15:13 → LB.MS 18:00
PROVIDERS: ADMIT Physician Assistant; ATTEND Physician Assistant
PROC: 8E0ZXY6 Isolation (ICD-10-PCS; principal; 2021-05-14)
PROC: 3E0333Z Introduction of Anti-inflammatory into Peripheral Vein, Percutaneous Approach (ICD-10-PCS; 2021-05-18)
DX: U07.1 COVID-19 (principal); J18.9 Pneumonia, unspecified organism; H91.90 Unspecified hearing loss, unspecified ear; J12.82 Pneumonia due to coronavirus disease 2019; R78.81 Bacteremia; G47.30 Sleep apnea, unspecified; K21.9 Gastro-esophageal reflux disease without esophagitis; R33.9 Retention of urine, unspecified; N42.9 Disorder of prostate, unspecified; G47.33 Obstructive sleep apnea (adult) (pediatric); C95.90 Leukemia, unspecified not having achieved remission; F32.A Depression, unspecified; D64.9 Anemia, unspecified; E87.6 Hypokalemia; K59.00 Constipation, unspecified; Z79.82 Long term (current) use of aspirin; Z79.899 Other long term (current) drug therapy; I25.2 Old myocardial infarction; Z95.5 Presence of coronary angioplasty implant and graft; Z86.16 Personal history of COVID-19; Z87.891 Personal history of nicotine dependence
CPT/HCPCS: 36415; 71045; 80048; 80053; 81001; 83605; 85025; 87040; 93005; 96374; 96376; 99285-25; A9270-GY; J0456; J0696; J2060; J2405; J7040; J7050; J7620-GY; J8540

== ENCOUNTER 2022-06-12 14:36 | Emergency (ER) | payer MEDICARE, BC ==
[2022-06-12] MEDS ORDERED: Glycerin Adult 2 GM Supp RECTAL ONE (15:28)
[2022-06-12] MEDS ORDERED: Lactulose Soln 10 GM/15 ML 15 ML UD Cup PO ONE (15:29)
== END 2022-06-12 15:35 | disposition home or self-care (01) ==
LOC: LB.ED 14:36
DX: K59.00 Constipation, unspecified (principal); K21.9 Gastro-esophageal reflux disease without esophagitis; I25.2 Old myocardial infarction; Z79.82 Long term (current) use of aspirin; Z79.899 Other long term (current) drug therapy
CPT/HCPCS: 74019; 99282; 99284; A9270-GY

== ENCOUNTER 2022-06-13 01:55 | Emergency (ER) | payer MEDICARE, BC ==
[2022-06-13] MEDS ORDERED: Sodium Phosphate,Monobasic/Sodium Phosphate,Dibasic Enema 133 ML Bottle RECTAL ONE ×2 (02:00→02:40)
== END 2022-06-13 03:15 | disposition home or self-care (01) ==
LOC: LB.ED 01:55
DX: K59.00 Constipation, unspecified (principal); E78.5 Hyperlipidemia, unspecified; K21.9 Gastro-esophageal reflux disease without esophagitis; I11.0 Hypertensive heart disease with heart failure; I50.9 Heart failure, unspecified; I25.2 Old myocardial infarction; Z79.899 Other long term (current) drug therapy; Z79.82 Long term (current) use of aspirin; Z87.891 Personal history of nicotine dependence
CPT/HCPCS: 99283; A9270-GY

== ENCOUNTER 2023-10-17 12:19 | Emergency (ER) | payer MEDICARE, BC ==
[2023-10-17] MEDS ORDERED: Ondansetron 4 MG Tab.DIS PO PRN (13:08)
[2023-10-17] MEDS: Acetaminophen 500 MG Tab PO ONE (13:19)
[2023-10-17] MEDS: Acetaminophen 500 MG Tab ONE (13:22)
[2023-10-17 13:26] LABS: HEMATOCRIT 35.7 % (40.0-54.0); HEMOGLOBIN 11.9 g/dL (13.0-18.0); MEAN CORPUSCULAR HEMOGLOBIN 29.6 pg (27.0-32.0); MEAN CORPUSCULAR HGB CONC 33.3 g/dL (31.0-35.0); MEAN CORPUSCULAR VOLUME 89 fL (76-96); MEAN PLATELET VOLUME 11.1 fL (6.0-10.0); PLATELET COUNT,PLT 178 K/uL (150-400); RED BLOOD CELL COUNT 4.02 M/uL (4.50-6.50); RED CELL DISTRIBUTION WIDTH 15.5 % (11.0-16.0)
[2023-10-17 13:39] LABS: APPEARANCE,URINE CLEAR (CLEAR); BILIRUBIN,URINE NEGATIVE (NEGATIVE); COLOR,URINE YELLOW; GLUCOSE,URINE NEGATIVE (NEGATIVE); KETONES,URINE NEGATIVE (NEGATIVE); LEUKOCYTE ESTERASE,URINE NEGATIVE (NEGATIVE); NITRITE,URINE NEGATIVE (NEGATIVE); OCCULT BLOOD,URINE TRACE-INTACT (NEGATIVE); PROTEIN,URINE NEGATIVE (NEGATIVE); UROBILINOGEN,URINE 0.2 E.U./dL (0.2-1.0)
[2023-10-17 13:43] LABS: RBC,URINE 0-5 /HPF; WBC,URINE 0-5 /HPF
[2023-10-17 13:44] LABS: SQUAMOUS EPITHELIAL CELLS,UR OCCASIONAL /HPF
[2023-10-17 13:45] LABS: A/G RATIO 1.1 (0.8-2.0); ALBUMIN 3.2 g/dL (3.4-5.0); ANION GAP 9.7 mmol/L (5.0-15.0); BILIRUBIN TOTAL 0.5 mg/dL (0.0-1.0); BUN/CREATININE RATIO 18.9 (6-25); CALCIUM 8.4 mg/dL (8.5-10.1); CARBON DIOXIDE,CO2 31.3 mmol/L (21.0-32.0); CREATININE 2.06 mg/dL (0.70-1.30); EST CRCL DRUG DOSING (CG) 25.36 mL/min
[2023-10-17 13:55] LABS: WHITE BLOOD CELL COUNT,WBC 73.7 K/uL (4.0-11.0)
[2023-10-17 14:13] LABS: LACTIC ACID 0.3 mmol/L (0.4-2.0)
[2023-10-17 14:19] LABS: ELLIPTOCYTES RARE; PLATELET COUNT ESTIMATE ADEQUATE; POIKILOCYTOSIS OCCASIONAL; TEARDROP CELLS OCCASIONAL
== END 2023-10-17 15:27 | disposition home or self-care (01) ==
LOC: LB.ED 12:19
DX: R10.32 Left lower quadrant pain (principal); I10 Essential (primary) hypertension; I25.2 Old myocardial infarction; E78.00 Pure hypercholesterolemia, unspecified; K21.9 Gastro-esophageal reflux disease without esophagitis; Z95.5 Presence of coronary angioplasty implant and graft; Z79.899 Other long term (current) drug therapy; Z79.82 Long term (current) use of aspirin
CPT/HCPCS: 36415; 74176; 80053; 81001; 83605; 83690; 85025; 99284; A9270